=== PATIENT | male | born 2000 | race Caucasian/White ===

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

== ENCOUNTER 2020-07-04 09:40 | Emergency (ER) | payer OTHER ==
[~2020-07-04] VITALS: Ht 175.3 cm; Wt 111.1 kg
[~2020-07-04 09:40] MED LIST changes: +HYDHCL25 PO
[2020-07-04] MEDS ORDERED: IBUP400 PO (11:54)
== END 2020-07-04 12:06 | disposition home or self-care (01) ==
LOC: ER 09:40
DX: S93.402A Sprain of unspecified ligament of left ankle, initial encounter (principal); Z79.899 Other long term (current) drug therapy; V86.59XA Driver of other special all-terrain or other off-road motor vehicle injured in nontraffic accident, initial encounter
CPT/HCPCS: 73590; 73610; 99283-25